=== PATIENT | male | born 1990 | race Two or more races ===

== ENCOUNTER 2025-05-02 15:12 | Emergency (ER) | payer OTHER ==
[~2025-05-02] VITALS: Ht 182.9 cm; Wt 82.0 kg
[2025-05-02 15:48] VITALS: O2SAT 97
[2025-05-02] MEDS ORDERED: LIDOCAINE 5% PATCH TOP STA (16:31)
[2025-05-02] MEDS: CYCLOBENZAPRINE 10MG TABLET PO ONE (18:14)
[2025-05-02] MEDS: LIDOCAINE 5% PATCH TOP NR (18:14)
[2025-05-02] MEDS: KETOROLAC 30MG/ML VIAL IM ONE (18:14)
[2025-05-02] MEDS ORDERED: IBUP-1455 MT (18:25)
[2025-05-02] MEDS ORDERED: LIDO700A30 TP (18:25)
[2025-05-02] MEDS ORDERED: CYCL10TA21 MT (18:25)
[2025-05-02 18:48] VITALS: BP 121/90; PULSE 71; RESP 18; TEMP 36.8; O2SAT 100
== END 2025-05-02 18:49 | disposition home or self-care (01) ==
LOC: ER 15:41
DX: S09.8XXA Other specified injuries of head, initial encounter (principal); M54.2 Cervicalgia; M25.512 Pain in left shoulder; M54.50 Low back pain, unspecified; M25.552 Pain in left hip; M25.562 Pain in left knee; V89.2XXA Person injured in unspecified motor-vehicle accident, traffic, initial encounter; Y92.410 Unspecified street and highway as the place of occurrence of the external cause; Y93.89 Activity, other specified; Y99.8 Other external cause status
CPT/HCPCS: 99285; 70450; 73030; 72131; 71250; 74176; 96372; J1885